=== PATIENT | male | born 1955 | race Caucasian/White ===

== ENCOUNTER 2025-03-17 09:15 | Emergency (ER) | payer MEDICARE ==
[~2025-03-17] VITALS: Ht 165.1 cm; Wt 72.0 kg
[2025-03-17 09:22] VITALS: BP 126/109; PULSE 69; RESP 20; TEMP 97.9; O2SAT 99
[2025-03-17] MEDS ORDERED: SACC250C9 PO (09:42)
[2025-03-17] MEDS ORDERED: PANT-31 PO (09:42)
[2025-03-17] MEDS ORDERED: CALC-916 PO (09:42)
[2025-03-17] MEDS ORDERED: MELA5TAB21 PO (09:42)
[2025-03-17] MEDS ORDERED: LEVO50 PO (09:42)
[2025-03-17] MEDS ORDERED: POLY17PO62 PO (09:42)
[2025-03-17] MEDS ORDERED: DOCU250C15 PO (09:42)
[2025-03-17] MEDS ORDERED: TRAZ-257 PO (09:42)
[2025-03-17] MEDS ORDERED: SENN-376 PO (09:42)
[2025-03-17] MEDS ORDERED: LEVE1000 PO (09:42)
[2025-03-17] MEDS ORDERED: CHOL400T33 PO (09:42)
[2025-03-17] MEDS ORDERED: ESCI20TA87 PO (09:42)
[2025-03-17] MEDS ORDERED: LORA2TAB18 PO (09:42)
[2025-03-17] MEDS ORDERED: MULT-1192 PO (09:42)
[2025-03-17] MEDS ORDERED: DIVA-111 PO (09:42)
== END 2025-03-17 10:43 | disposition home or self-care (01) ==
LOC: EMS 09:15
DX: S01.111A Laceration without foreign body of right eyelid and periocular area, initial encounter (principal); E03.9 Hypothyroidism, unspecified; F32.A Depression, unspecified; F41.9 Anxiety disorder, unspecified; G40.909 Epilepsy, unspecified, not intractable, without status epilepticus; Z79.899 Other long term (current) drug therapy; W01.198A Fall on same level from slipping, tripping and stumbling with subsequent striking against other object, initial encounter; Y93.89 Activity, other specified; Y92.89 Other specified places as the place of occurrence of the external cause; Y99.8 Other external cause status
CPT/HCPCS: 12011; 99282; Z7502